=== PATIENT | female | born 1960 | race Two or more races ===

== ENCOUNTER 2025-06-17 06:07 | Inpatient (IN) | payer MEDICAID ==
[~2025-06-17] VITALS: Ht 167.6 cm; Wt 57.6 kg
[2025-06-17] VITALS (22 sets, daily range): BP systolic 105–171; BP diastolic 55–83; PULSE 59–87; RESP 12–19; TEMP 96.6–97.6; O2SAT 93–100
[~2025-06-17 06:07] MED LIST: LEVO25TA6 PO; LOSA-533 PO
[2025-06-17] MEDS: ACETAMINOPHEN IV 100 ML IV ONE (06:40)
[2025-06-17] MEDS ORDERED: MIDAZOLAM HCL 2MG/2ML 2ml VIAL (1mg/ml) ONE (07:26)
[2025-06-17] MEDS ORDERED: fentaNYL CITRATE 100 MCG/2 ML VL ONE (07:26)
[2025-06-17] MEDS: TETRACAINE 1% INJ 2 ML VIAL IJ ONE (07:26)
[2025-06-17] MEDS ORDERED: MORPHINE SULF PF 5 MG/10 ML VIAL ONE (07:26)
[2025-06-17] MEDS: ACETAMINOPHEN IV 1000 MG/100ML (10MG/ML) IV ONE (07:45)
[2025-06-17] MEDS: PREGABALIN CAPSULE 75 MG CAP PO ONE (07:45)
[2025-06-17] MEDS: CELECOXIB 100 MG CAP PO ONE (07:45)
[2025-06-17] MEDS ORDERED: MIDAZOLAM HCL 2MG/2ML 2ml VIAL (1mg/ml) IV PRN (09:45)
[2025-06-17] MEDS ORDERED: ONDANSETRON HCL 4 MG/2 ML VIAL IV PRN ×3 (09:45→10:45)
[2025-06-17] MEDS ORDERED: diphenhydrAMINE HCL 50 MG/1 ML VL IV PRN (09:45)
[2025-06-17] MEDS ORDERED: hydrALAZINE HCL 20 MG/ML VL IV PRN (09:45)
[2025-06-17] MEDS ORDERED: HYDROmorphone HCL 2 MG/ML VL/or syr IV PRN ×3 (09:45→16:00)
[2025-06-17] MEDS: TRANEXAMIC ACID 20 ML ONE (10:00)
[2025-06-17] MEDS: ceFAZolin 2 GM/D5W50ml 50 ML IV ONE (10:00)
[2025-06-17] MEDS: CEFEPIME 1GM/50ML 50 ML IV ONE (10:15)
[2025-06-17] MEDS: BUPIVACAINE 0.25% INJ 50ML VIAL ONE (10:15)
[2025-06-17] MEDS: KETOROLAC TROMETH 30 MG/ML 1ML VIAL ONE (10:15)
[2025-06-17] MEDS: VANCOMYCIN HCL 1000 MG VL ONE (10:15)
[2025-06-17] MEDS ORDERED: ACETAMINOPHEN 325 MG TAB PO PRN (10:45)
[2025-06-17] MEDS ORDERED: HYDROcodone-ACET 5/325MG TAB PO PRN (10:45)
[2025-06-17] MEDS ORDERED: ceFAZolin 1GM/50ML 50 ML IV SCH (10:45)
--- NOTE | 2025-06-17 12:11 | DVHOP2 ---
Operative Report - 2 Report Details Date: 06/17/25 Preop Diagnosis: Failed Left DHS Postop Diagnosis: Same Surgeon: Juaquin Soto MD [employer] Team Member: Valerio DEAN Anesthesiologist: See Anesthesia Record Anesthesia: General Consent: The patient was informed of the risks and benefits of the procedure. These include but are not limited to complications of anesthesia, postoperative infection, incomplete relief of symptoms, recurrence of symptoms, damage to blood vessels, nerves and tendons, deep venous thrombosis, pulmonary embolism and possible need for repeat surgery in the future. Name of Procedure Performed Conversion DHS to BEBO for cut out Procedure Details Procedure Details: The patient was positioned in the lateral decubitus position with appropriate padding to the axilla, pelvis, and lower extremities. The nonoperative leg was fitted with a compression stocking and sequential compression device. The operative site was prepped and draped in the standard sterile fashion. The orthopedic team utilized body exhaust suits. A posterior approach was utilized. A new skin incision was made posterior to the greater trochanter, this was much more posterior to her prior incision. Dissection was carried through subcutaneous tissue, and the fascia of the gluteus alex was split in line with its fibers. The short external rotators were identified and released, and the hip was dislocated posteriorly. The previous DHS hardware was identified and carefully removed in its entirety. Intraoperative cultures were obtained per protocol. Attention was then directed to the acetabulum. Acetabular retractors were placed for exposure. The labrum and pulvinar were excised. Sequential reaming was performed to 50 mm. The definitive 50 mm acetabular cup was implanted and secured. A dual mobility liner was inserted and tested for stability. The femur was then prepared. The canal was sequentially reamed and broached. A single cable was placed distal to the prior screw sites to protect against fracture propagation. The Vale modular femoral system was selected after sequential reaming starting with 12mm: a 16 mm distal fluted stem, size A, with a 50 mm body and 0 head. The components were assembled, implanted, confirmed to be well fixed. The trunnion was cleaned and dried, and the dual mobility head was impacted. The hip was reduced and stability confirmed. The wound was irrigated with pulsatile lavage and a dilute betadine solution. Local anesthetic cocktail was injected into the soft tissues. The capsule and short external rotators were repaired with #5 FiberWire. The fascia was closed with #1 absorbable suture, and the subcutaneous tissue with 2-0 absorbable suture. Skin was closed with tank. A sterile dressing was applied, and an abduction pillow was placed. The patient was transferred to the recovery room in stable condition. Instrument Count: Correct Surgeon Presence: I was present for the entire procedure. Condition Fair Disposition JUAQUIN SOTO DO Jun 17, 2025 12:11
[2025-06-17] MEDS ORDERED: NITROGLYCERIN 0.4 MG SL TAB SL PRN (13:45)
[2025-06-17] MEDS ORDERED: MORPHINE SULFATE INJ 2 MG/ml SYRG IV PRN (13:45)
[2025-06-17] MEDS: LACTATED RINGER'S 1,000 ML IV SCH (14:13)
[2025-06-17] MEDS: SODIUM CHLOR 0.9% PF (SALINE LOCK) 10ML VIAL/SYR IV SCH (14:16)
--- NOTE | 2025-06-17 14:47 | DVH ---
EXAM: XY PELVIS AP CLINICAL INDICATION: sp left revision BEBO TECHNIQUE: XY PELVIS AP Comparison: None FINDINGS/IMPRESSION: Left total hip arthroplasty. Surgical skin tank present
--- NOTE | 2025-06-17 15:59 | DVHINCON2 ---
Date Seen: Jun 17, [address] MARSHALL Family History: Patient reports no known family medical history. Allergies: Coded Allergies: Penicillins (Unverified Allergy, Mild, rash, 06/13/25) Home Meds Reported Medications Levothyroxine Sodium (Levothyroxine Sodium) 25 Mcg Tab, PO, TAB 06/13/25 Losartan Potassium (Losartan Potassium) 25 Mg Tab, PO, TAB 06/13/25 Current Medications Current Medications Medications (Trade) Dose Ordered Sig/Sandra Route PRN Reason Start Time Stop Time Status Last Admin Diphenhydramine HCl (Benadryl Injection) 25 mg Q4HP PRN IV FOR ITCHING 06/17/25 09:45 Ondansetron HCl (Zofran) 4 mg Q4HP PRN IV NAUSEA / VOMITING 06/17/25 09:45 Cancel Hydromorphone HCl (Dilaudid Injection) 0.5 mg Q15M PRN IV SEVERE PAIN (7-10 PAIN SCALE) 06/17/25 09:45 06/17/25 10:44 DC Dexamethasone Sodium Phosphate (Decadron Injection) 10 mg ENTRY LEVEL ELECTRICIAN PRN IV FOR ITCHING 06/17/25 09:45 06/17/25 10:44 DC Ondansetron HCl (Zofran) 4 mg ONCE PRN IV NAUSEA / VOMITING 06/17/25 09:45 06/17/25 10:44 DC Hydralazine HCl (Apresoline Injection) 5 mg Q10M PRN IV SBP>160 06/17/25 09:45 06/17/25 10:44 DC Midazolam HCl (Versed Injection) 1 mg Q10M PRN IV ANXIETY 06/17/25 09:45 06/17/25 10:44 DC Ephedrine Sulfate (ePHEDrine SULFATE) 10 mg Q10M PRN IV SBP LESS THAN 90 06/17/25 09:45 06/17/25 10:44 DC Levothyroxine Sodium (Synthroid Tablet) 25 mcg DAILY PO 06/18/25 10:00 Losartan Potassium (Cozaar Tablet) 25 mg DAILY PO 06/18/25 10:00 Cefepime HCl 50 ml @ 12.5 mls/hr DAILY IV 06/18/25 10:00 Lactated Ringer's 1,000 ml @ 100 mls/hr Q10H IV 06/17/25 10:45 06/17/25 14:13 Sodium Chloride (Saline Lock Ns) 10 ml Q8HR IV 06/17/25 14:00 06/17/25 14:16 Cefazolin Sodium 50 ml @ 50 mls/hr Q6H IV 06/17/25 10:45 06/17/25 14:16 DC Acetaminophen (Tylenol Tablet) 650 mg Q6HP PRN PO MILD PAIN OR TEMP >101 06/17/25 10:45 Acetaminophen/ Hydrocodone Bitart ([place] 5/325MG Tab) 1 tab Q4HP PRN PO MODERATE PAIN (4-6 PAIN SCALE) 06/17/25 10:45 Hydromorphone HCl (Dilaudid Injection) 1 mg Q2HP PRN IV SEVERE PAIN (7-10 PAIN SCALE) 06/17/25 10:45 Ondansetron HCl (Zofran) 4 mg Q6HP PRN IV NAUSEA / VOMITING 06/17/25 10:45 Docusate Sodium (Colace Capsule) 100 mg Q12HR PO 06/17/25 22:00 Enoxaparin Sodium (Lovenox) 40 mg DAILY SC 06/18/25 10:00 Nitroglycerin (Ntrostat Sublingual) 0.4 mg Q5MINP PRN SL FOR CHEST PAIN 06/17/25 13:45 Morphine Sulfate 2 mg Q30M PRN IV FOR CHEST PAIN 06/17/25 13:45 Albuterol (Ventolin Medneb) 2.5 mg Q6HWA [facility] 06/17/25 14:00 Ipratropium [place] (Atrovent Medneb) 0.5 mg Q6HWA [facility] 06/17/25 14:00 Cefazolin Sodium 50 ml @ 50 mls/hr Q6H IV 06/17/25 16:00 06/18/25 04:59 Vital Signs Vital Signs Date Time Temp Pulse Resp B/P (MAP) Pulse Ox O2 Delivery O2 Flow Rate FiO2 06/17/25 15:20 61 16 95 06/17/25 15:09 Nasal Cannula* 2 28 06/17/25 15:00 134/69 (90) 06/17/25 12:25 97.1 97.1 Assessment SEE DICTATED NOTE Plan discussed with: Patient Date of Service: Jun 17, 2025 Billing Provider: ZABRINA SCHMIDT MD Common Visit Codes: [id number] INP/OBS CARE (HIGH) Secondary Visit Codes: [id number] CHNG SMOKING >10MIN, [id number] CARE PLAN 30 MINUTES ZABRINA SCHMIDT MD Jun 17, 2025 15:59
[2025-06-17] MEDS: ceFAZolin 1GM/50ML 50 ML IV SCH (16:47)
[2025-06-17] MEDS ORDERED: TRAZ-227 PO (16:57)
[2025-06-17] MEDS: NICOTINE 14 MG/24HR TOPICAL PATCH TD ONE (17:22)
--- NOTE | 2025-06-17 17:41 | DVHINCON2 ---
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 The patient denies any significant pain. No chest pain, no shortness of breath, no nausea or vomiting. REVIEW OF SYSTEMS: Review of rest of systems are otherwise currently negative. PAST MEDICAL HISTORY: Significant for hypertension, likely COPD, hypothyroidism. MEDICATIONS: She takes levothyroxine and losartan. ALLERGIES: PENICILLIN. SOCIAL HISTORY: Smokes cigarettes. Lives at home with her . FAMILY HISTORY: Negative. PHYSICAL EXAMINATION: GENERAL: The patient is awake, alert. VITAL SIGNS: Temperature of 97.1, pulse of 76 per minute, and blood pressure 127/67. SHEENT: Unremarkable. NECK: There is no JVD. No pedal edema. LUNGS: Diminished bilaterally. CARDIOVASCULAR: S1 and S2 is regular without murmurs. ABDOMEN: Soft. There is no organomegaly. NEUROLOGIC: Nonfocal. MUSCULOSKELETAL: There is a dressing at the site of the left hip surgery. ASSESSMENT AND PLAN: * Hypertension for which the patient's blood pressure will be monitored. * Hypothyroidism. TSH will be checked. * Likely COPD, for which she will be placed on bronchodilators. * Tobacco abuse. The patient has been advised to quit. A nicotine patch will be placed. Time spent and counseling was 11 minutes. * Status post left hip surgery for DJD of the hip for which she will receive pain medication and physical therapy. Advanced care planning: The patient is a full code. Time spent was 17 minutes. MD NAHID Rodriguez/ASHLY TID: [id number] RECEIPT: [id number]
[2025-06-17 18:27] LABS: Urine Protein, UAD 1+ (Negative)
[2025-06-17] MEDS: ALBUTEROL SULF 2.5 MG/0.5ML(0.5%) NEB SOLN NEB SCH (19:09)
[2025-06-17] MEDS: IPRATROPIUM BROM 0.5 MG/2.5ML INH SOL NEB SCH (19:09)
[2025-06-17] MEDS: DOCUSATE SOD 100 MG CAP PO SCH (21:59)
[2025-06-18] VITALS (24 sets, daily range): BP systolic 92–112; BP diastolic 53–68; PULSE 73–94; RESP 16–20; TEMP 97.2–98.2; O2SAT 94–100
[2025-06-18 06:15] LABS: Hemoglobin 9.8 g/dL (12.2-16.2)
[2025-06-18 06:16] LABS: Hematocrit 28.0 % (36.0-46.0); Mean Corpuscular Hemoglobin 35.3 pg (28.0-32.0); Mean Corpuscular Volume 100.7 fL (80.0-100.0); Nucleated Red Blood Cells % 0.1 %
[2025-06-18 06:38] LABS: Alanine Aminotransferase 11 U/L (7-40); Alkaline Phosphatase 61 U/L (46-116); Anion Gap 8 (5-15); BUN/Creatinine Ratio 11.6 (10.0-20.0); Carbon Dioxide 27 mmol/L (20-31); Chloride 99 mmol/L (98-107); Potassium 3.9 mmol/L (3.5-5.1)
[2025-06-18 06:40] LABS: Bilirubin, Total 0.4 mg/dL (0.2-1.0)
[2025-06-18 06:43] LABS: Albumin 3.2 g/dL (3.2-4.8); Blood Urea Nitrogen 8 mg/dL (9-23); Calcium 7.7 mg/dL (8.7-10.4); Glucose 180 mg/dL (74-106); Sodium 134 mmol/L (136-145); Total Protein 5.4 g/dL (5.7-8.2)
--- NOTE | 2025-06-18 08:01 | DVHPN2 ---
Progress Note Date Seen: Jun 18, 2025 Medical Necessity Reason Pt with a Central, PICC or Fol: No Subjective Patient reports: No new complaints Objective vital signs Vital Sign Date Time Temp Pulse Resp B/P (MAP) Pulse Ox O2 Delivery O2 Flow Rate FiO2 06/18/25 06:52 92 16 100 06/18/25 06:45 Room Air* 0 21 06/18/25 05:00 98.2 103/62 (76) 98.2 Total Intake and Output 06/17/25 06/17/25 06/18/25 15:00 23:00 07:00 Intake Total 120 ml 500 ml 1950 ml Output Total 300 ml 89 ml 900 ml Balance -180 ml 411 ml 1050 ml medications Current Medications Medications Dose Ordered Sig/Sandra Route Start Time Stop Time Status Last Admin Dose Admin Diphenhydramine HCl 25 mg Q4HP PRN IV 06/17/25 09:45 Ondansetron HCl 4 mg Q4HP PRN IV 06/17/25 09:45 Cancel Levothyroxine Sodium 25 mcg DAILY PO 06/18/25 10:00 Cefepime HCl 50 ml @ 12.5 mls/hr DAILY IV 06/18/25 10:00 Lactated Ringer's 1,000 ml @ 100 mls/hr Q10H IV 06/17/25 10:45 06/18/25 05:04 100 MLS/HR Sodium Chloride 10 ml Q8HR IV 06/17/25 14:00 06/18/25 05:10 10 ML Acetaminophen 650 mg Q6HP PRN PO 06/17/25 10:45 Acetaminophen/ Hydrocodone Bitart 1 tab Q4HP PRN PO 06/17/25 10:45 Ondansetron HCl 4 mg Q6HP PRN IV 06/17/25 10:45 Docusate Sodium 100 mg Q12HR PO 06/17/25 22:00 06/17/25 21:59 100 MG Enoxaparin Sodium 40 mg DAILY SC 06/18/25 10:00 Nitroglycerin 0.4 mg Q5MINP PRN SL 06/17/25 13:45 Morphine Sulfate 2 mg Q30M PRN IV 06/17/25 13:45 Albuterol 2.5 mg Q6HWA NEB 06/17/25 14:00 06/18/25 06:45 2.5 MG Ipratropium [place] 0.5 mg Q6HWA NEB 06/17/25 14:00 06/18/25 06:45 0.5 MG Hydromorphone HCl 1 mg Q3HP PRN IV 06/17/25 16:00 Nicotine 1 patch DAILY TD 06/18/25 10:00 Examination: GENERAL:Normal, MSK:Abnormal laboratory and microbiology Laboratory Tests 06/18/25 05:30 Test 06/18/25 05:30 Range/Units Serum Glucose 180 H 74-106 mg/dL Problem List/Assessment/Plan Problem List/Assessment/Plan 65 year old female who is s/p left hip hardware removal with conversion to BEBO POD 1 1. Pain control 2. DVT ppx 3. d/c waller cath 4. WBAT LLE with use of walker 5. Physical therapy 6. postop prescriptions sent to patients pharmacy prior to surgery and patient confirmed pickup 7. follow up in 2 weeks as scheduled on 07/02/2025 at 10:[address] Florez 8. Clear for discharge pending patient ambulating with PT, discharge recommendations as follows: POSTOPERATIVE Posterior Total Hip INSTRUCTIONS Activity: 1. You can bear as much weight as you tolerate on your hip unless specifically instructed otherwise. You may use the walking aid which you were discharged with and switch to a cane whenever you feel comfortable doing so. You should use an assistive device until you can walk comfortably without it. Keep in mind that every patient moves at their own speed of recovery so take your time. 2. A physical therapist will visit you at home. 3. Although guarantees against a dislocation do not exist, the hip was noted to be sufficiently stable in surgery. Below are motions that you should dischargenot do for 4-6 weeks, depending on the surgical approach used. If there are questions, please call the office. a. Bend forward past 90 degrees b. Sit on a regular low chair, couch, car seat etc... c. Cross your legs d. Use a regular low toilet seat. e. Sleep on your stomach or on either side. 3. High impact activity such as jumping, aerobics, tennis, and skiing are not permitted during the first 3 months after surgery. These activities can contribute to accelerated wear and should be done with caution after this time. Discuss this with your surgeon if you have questions. 4. Although a bath or whirlpool is NOT permitted during the first 2-3 weeks, you may shower as soon as you get home from the hospital provided you are able to keep your bandage clean and dry and there is no wound drainage. If you are unable to place a secured covering over your bandage bed bath/sponge bath may likely be the more appropriate option. 5. Swimming is not permitted until the wound is healed, which typically occurs approximately 3-4 weeks after surgery. Wound Management: If the wound is draining please change the gauze pad on the wound until it stops. If drainage persists past 10 days please notify our office. If there is a sticky gel dressing over your wound, you may leave this in place for as long as it is clean and dry. If it becomes loose or causes skin irritation, it is OK to remove it and place clean gauze over your wound. 1. You might notice some bruising around the surgical site, this is normal. 2. Check your temperature on a daily basis. Please note that a low-grade temp below 101 is not uncommon after surgery especially during the first 3 days. Notify the office if your temperature spikes above 101.5 after the 3rd post- operative date. 3. Many patients experience significant swelling in the thigh, this may extend below the knee and sometimes to the ankle. Swelling increases during the first week and subsides during the following week. 4. Provided you have been on a blood thinner since surgery and have been up and about at least three times per day, the risk of a blood clot is low and this swelling is an expected part of recovery. It will largely or completely resolve by your first post-operative visit. 5. Morales, if present, will be removed at 2 weeks during initial post-op visit. Medications: 1. You will be discharged with pain medication, Aspirin as a blood thinner and sometimes an anti-inflammatory medication such as Celebrex or Mobic might be prescribed. Please follow the instructions regarding these medicines as provided by your nurse at the hospital. 2. Narcotic pain medication has side effects, including constipation. Please ensure you continue to take stool softeners (Colace, Senna) while taking your pain medication to help protect against constipation. Getting up and moving around at least a few times per day helps with this also. 3. Lovenox 40 Sq x 12 days followed by one regular strength 325 mg coated aspirin daily for 4 weeks after surgery. Then, take one baby aspirin, 81 mg daily for 6 weeks more. A major, yet preventable, complication of Orthopaedic Surgery is a blood clot (DVT). It is important not to miss any doses of this important medication. 4. You should restart all of your prescription medications once discharged unless specifically instructed otherwise. 5. Herbal supplements may be restarted 2 weeks after surgery. Miscellaneous issues: 1. Driving is not permitted within the first 2 weeks. 2. Your first postoperative visit will take place 2weeks after discharge. Please call the office to arrange this appointment. 3. Antibiotic preventative treatment is required before dental or other invasive procedures. Please ask your surgeon about this at your first postoperative visit. Your hip replacement contains metal which may activate metal detectors. You may wish to carry a letter from your surgeon to communicate this to security personnel. If you experience chest pain, shortness of breath or severe painful calf swelling, go to the nearest emergency room to be evaluated. Please call our office once your situation is stabilized. Plan discussed with: Patient Date of Service: Jun 18, 2025 Billing Provider: GIULIANA FLOREZ MD Common Visit Codes: NOT BILLABLE SHU JEREZ NP Jun 18, 2025 08:01
[2025-06-18] MEDS: LEVOTHYROXINE SODIUM 25 MCG TAB PO SCH (09:41)
[2025-06-18] MEDS: ENOXAPARIN SOD 40 MG/0.4 ML SYRINGE SC SCH (09:41)
[2025-06-18] MEDS: NICOTINE 14 MG/24HR TOPICAL PATCH TD SCH (09:41)
[2025-06-18] MEDS: CEFEPIME 1GM/50ML 50 ML IV SCH (09:41)
[2025-06-18] MEDS ORDERED: LOSARTAN POTASSIUM 25 MG TAB PO SCH (10:00)
--- NOTE | 2025-06-18 10:09 | DVHDS2 ---
Discharge Summary Date of Admission Jun 17, 2025 at 13:38 Date of Discharge: Jun 18, 2025 Labs/Diagnostic Data: Laboratory Results Test 06/18/25 05:30 06/17/25 17:15 White Blood Count 6.3 10^3/uL (4.4-10.8) Red Blood Count 2.78 10^6/uL (4.0-5.20) Hemoglobin 9.8 g/dL (12.2-16.2) Hematocrit 28.0 % (36.0-46.0) Mean Corpuscular Volume 100.7 fL (80.0-100.0) Mean Corpuscular Hemoglobin 35.3 pg (28.0-32.0) Mean Corpuscular Hemoglobin Concent 35.1 g/dL (32.0-36.0) Red Cell Distribution Width 12.7 % (11.8-14.3) Platelet Count 264 10^3/uL (140-450) Mean Platelet Volume 7.1 fL (6.9-10.8) Neutrophils (%) (Auto) 68.2 % (37.0-80.0) Lymphocytes (%) (Auto) 18.4 % (10.0-50.0) Monocytes (%) (Auto) 13.0 % (0.0-12.0) Eosinophils (%) (Auto) 0.1 % (0.0-7.0) Basophils (%) (Auto) 0.3 % (0.0-2.0) Neutrophils # (Auto) 4.3 10 ^3/uL (1.6-8.6) Lymphocytes # (Auto) 1.2 10 ^3/uL (0.4-5.4) Monocytes # (Auto) 0.8 10 ^3/uL (0-1.3) Eosinophils # (Auto) 0 10 ^3/uL (0-0.8) Basophils # (Auto) 0 10 ^3/uL (0-0.2) Nucleated Red Blood Cells 0.1 % Sodium Level 134 mmol/L (136-145) Potassium Level 3.9 mmol/L (3.5-5.1) Chloride Level 99 mmol/L (98-107) Carbon Dioxide Level 27 mmol/L (20-31) Anion Gap 8 (5-15) Blood Urea Nitrogen 8 mg/dL (9-23) Creatinine 0.69 mg/dL (0.550-1.02) Glomerular Filtration Rate Calc 97 mL/min (>90) BUN/Creatinine Ratio 11.6 (10.0-20.0) Serum Glucose 180 mg/dL (74-106) Calcium Level 7.7 mg/dL (8.7-10.4) Total Bilirubin 0.4 mg/dL (0.2-1.0) Aspartate Amino Transferase (AST) 24 U/L (13-40) Alanine Aminotransferase (ALT) 11 U/L (7-40) Alkaline Phosphatase 61 U/L (46-116) Total Protein 5.4 g/dL (5.7-8.2) Albumin 3.2 g/dL (3.2-4.8) Thyroid Stimulating Hormone (TSH) 1.40 uIU/mL (0.55-4.78) Urine Color Yellow (Yellow) Urine Clarity Clear (Clear) Urine pH 6.0 (5.0-9.0) Urine Specific [place] 1.028 (1.001-1.035) Urine Protein 1+ (Negative) Urine Ketones 1+ (Negative) Urine Blood Trace /uL (Negative) Urine Nitrite Negative (Negative) Urine Bilirubin Negative (Negative) Urine Urobilinogen Normal mg/dL (Negative) Urine Leukocyte Esterase Negative /uL (Negative) Urine RBC 7 /hpf (0 - 4) Urine Microscopic WBC 3 /HPF (0-5) Urine Squamous Epithelial Cells Few /hpf (<5) Urine Bacteria None seen /hpf (None Seen) Urine Hyaline Casts Few /lpf (0 - 2) Urine Mucus Few (None Seen) Urine Glucose 3+ mg/dL (Normal) Other Laboratory Tests 06/18/25 05:30 Brief Hx & Hospital Course: SEE DICTATED NOTE Condition at Discharge: Fair Final Diagnosis/Problems List HIP SURGERY Discharge Disposition: Home Discharge Instruct/Medications Diet: Cardiac 2g Na,low cholest Activity: No Restrictions, As Tolerated Follow Up/Referral: FU WIHT PCP/ORTHO IN 2 WKS Medications: RESUME HOME MEDS REST MEDS PER ORTHO CHECK BP AT HOME PRIOR TO LOSARTAN Scheduled Losartan Potassium (Losartan Potassium), 50 PO BID, (Reported) Trazodone Hcl (Trazodone Hcl), 50 MG PO PRN, (Reported) Miscellaneous Medications Levothyroxine Sodium (Levothyroxine Sodium), 100 PO, (Reported) Discharge Statement: "Patient was advised to return to the ER or call 911 if any headaches, dizziness, shortness of breath, chest pain, abdominal pain, bleeding, fevers, or worsening of medical condition. Patient was counseled about treatment plan, medications, possible side effects, patientverbalized understanding. All questions were answered to the best of my ability. This discharge took greater then 30 minutes in planning, reviewing documentation, counseling the patient, and discussing with other team members." ASSESSMENT ASSESSMENT Assessment HIP SURGERY Date of Service: Jun 18, 2025 Billing Provider: ZABRINA SCHMIDT MD Common Visit Codes: [id number] DISCH DAY >30min ZABRINA SCHMIDT MD Jun 18, 2025 10:09
--- NOTE | 2025-06-18 10:19 | DVHDS ---
HISTORY OF PRESENT ILLNESS: The patient is a 65-year-old lady who was admitted after she underwent surgery for DJD of the left hip. The patient has history of hypertension, likely COPD, and hypothyroidism. HOSPITAL COURSE: The patient has done well postoperatively. Her hemoglobin was 9.8 prior to discharge. TSH was 1.40. The patient will be discharged home to resume her home medications. She will monitor her blood pressure at home as well as have home physical therapy. She will follow up with her primary and with Orthopedics. FINAL DIAGNOSES: * Hypertension. * Hypothyroidism. * Likely COPD. * Tobacco abuse. * Status post left hip surgery for DJD of the hip. Time spent in discharge planning and review of plan with the patient, nursing and Physical Therapy was 38 minutes. MD NAHID Rodriguez/JULIO TID: [id number] RECEIPT: [id number]
[2025-06-18] MEDS ORDERED: PROPOFOL 10 MG/ML 20 ML IV ONE (13:18)
== END 2025-06-18 14:35 | disposition home health service (06) | DRG 323 ==
LOC: SUR 06:07 → OVERFLOW 13:38 → TELE-CENTR 15:24
PROVIDERS: ADMIT Internal Medicine; ATTEND Internal Medicine
PROC: 0QP704Z Removal of Internal Fixation Device from Left Upper Femur, Open Approach (ICD-10-PCS; 2025-06-17)
PROC: 0SRB02Z Replacement of Left Hip Joint with Metal on Polyethylene Synthetic Substitute, Open Approach (ICD-10-PCS; principal; 2025-06-17 09:13)
DX: T84.021A Dislocation of internal left hip prosthesis, initial encounter (principal); I16.0 Hypertensive urgency; E03.9 Hypothyroidism, unspecified; J44.9 Chronic obstructive pulmonary disease, unspecified; I10 Essential (primary) hypertension; M16.12 Unilateral primary osteoarthritis, left hip; F17.210 Nicotine dependence, cigarettes, uncomplicated; Y83.8 Other surgical procedures as the cause of abnormal reaction of the patient, or of later complication, without mention of misadventure at the time of the procedure; Z88.0 Allergy status to penicillin; Y92.89 Other specified places as the place of occurrence of the external cause
CPT/HCPCS: 36415; 72170; 80053; 81001; 84443; 85025; 86850; 86900; 86901; 87070; 87075; 87205; 94640; 97163; G0378; J0131; J1100; J1885; J2250; J2704; J3490